=== PATIENT | male | born 1985 ===

== ENCOUNTER 2024-11-30 04:49 | Emergency (ER) | payer SELFPAY ==
[2024-11-30 04:57] VITALS: BP 166/88; PULSE 68; RESP 20; TEMP 36.1; O2SAT 98; BMI 22.1
--- NOTE | 2024-11-30 05:16 | ED.ABDPAIN ---
HPI - Abdominal Pain General Chief Complaint: Abdominal Pain Stated Complaint: abd pain Time Seen by Provider: 11/30/24 05:14 Source: patient Mode of arrival: ambulatory Limitations: no limitations History of Present Illness ED Provider: Dr. Kayla Hernandez HPI narrative: patient came to the emergency room complaining of abdominal pain versus penile pain? I was informed by registration that when patient walked into the main ED, patient dropped his pants and expose himself, yelling at the registration staff that his penis hurts. Then patient threw himself on the ground. Security was called and patient was brought back to the main ED. I was informed that when the patient arrived to his room in the main ED, patient treated himself in the ground again. Exposing his penis again. Immediately upon arrival, patient started screaming that he wanted to be discharged. I went into the room to talk to the patient, patient just kept yelling that he went to go Home and pushed all of the staff out of his way And splinted out Of the emergency room. I was informed by the staff that when patient was allowed to leave the room, patient broke the main entrance door of the ED. police department was called. Related Data Allergies Allergy/AdvReac Type Severity Reaction Status Date / Time codeine (CODEINE) Allergy Severe ANAPHYLAXIS Verified 11/30/24 05:03 penicillin V Allergy Unknown Hives Verified 11/30/24 05:03 Penicillins (PENICILLINS) Allergy Unknown HIVES Verified 11/30/24 05:03 Review of Systems Review of Systems Abdominal pain? penile pain? Physical Exam ED Vital Signs: Vital Signs - 24 hr 11/30/24 04:57 Temperature 97.0 F Pulse Rate 68 Respiratory Rate 20 Blood Pressure 166/88 H Pulse Oximetry 98 Oxygen Delivery Method Room Air BMI result Body Mass Index 22.1 Const Other: on arrived to the patient's room, patient was already walking to the way out, I asked him to return her his room but patient gets pending towards the door. Patient kicked a door, then on his way out, patient broke the main ED door Medical Decision Making Medical Decision Making MDM Narrative: it is unclear why patient came to the emergency room, seems that he was having penile pain versus abdominal pain. However, patient did not want any help and sprinted out of the emergency room Discharge Plan Discharge Clinical Impression: Penile pain Patient Disposition: Elopement Print Language: Portuguese
--- NOTE | 2024-11-30 05:20 | PC.NURSE ---
Pt ran out after provider went into assess pt, pt yelling, cursing, bagging door out of ER entrance
--- NOTE | 2024-11-30 05:21 | PC.NURSE ---
Provider at bedside attempting to assess pt. PT getting dressed and refusing to answer questions and left main ED area without speaking to provider. PT at ED door banging on door stating let me the fuck out of here . Door opened for pt. patient stormed out of waiting room slider automatic pushing on door causing damage to the door. Pt yelling obscenities and threatening staff, told tw i will fuck you up . Security called to assist awaiting [employer] for safety.
== END 2024-11-30 05:30 | disposition left against medical advice (07) ==
PROVIDERS: Emergency Provider Emergency Medicine
DX: N48.89 Other specified disorders of penis (principal); R10.2 Pelvic and perineal pain
CPT/HCPCS: 99281; 99283